=== PATIENT | male | born 1950 | race African-American/Black ===

== ENCOUNTER 2020-01-27 11:26 | Inpatient (IN) | payer MEDICARE, MEDICAID ==
[2020-01-27 12:25] VITALS: BP 165/75
[2020-01-27] MEDS ORDERED: Maalox 30 mL Cup PO PRN (21:17)
[2020-01-27] MEDS ORDERED: Magnesium Hydroxide (MOM) 30 mL UDC PO PRN (21:17)
[2020-01-27] MEDS ORDERED: GLUCAGON HCl 1 MG KIT IM PRN (21:17)
--- NOTE | 2020-01-27 22:50 | History & Physical ---
ADMIT DATE: 01/27/2020 HISTORY OF PRESENT ILLNESS: The patient is a 69-year-old male with long history of diabetes mellitus, hypertension, dementia, psychosis, admitted to [facility] under Dr. Weaver's service. The patient denies chest pain, shortness of breath, nausea, vomiting, fever or chills. PAST MEDICAL HISTORY: Significant for hypertension, diabetes mellitus, dementia, psychosis. PAST SURGICAL HISTORY: No recent surgery. ALLERGIES: None. MEDICATIONS: Follow admission reconciliation. SOCIAL HISTORY: He is a chronic smoker. No alcohol or drug. FAMILY HISTORY: Noncontributory. REVIEW OF SYSTEMS: RENAL SYSTEM: No history of chronic renal disorder. CARDIOVASCULAR SYSTEM: He has history of hypertension. ENDOCRINE SYSTEM: He has history of diabetes mellitus. GASTROINTESTINAL SYSTEM: No upper or lower GI bleed. NEUROLOGICAL SYSTEM: No seizure disorder. SKELETOMUSCULAR SYSTEM: No muscular dystrophy. HEMATOLOGICAL SYSTEM: No bleeding tendencies. RESPIRATORY SYSTEM: No asthma. GENITOURINARY SYSTEM: No dysuria or hematuria. PHYSICAL EXAMINATION: GENERAL: He is awake, alert, confused. VITAL SIGNS: Temperature 97.6, heart rate 89, blood pressure 161/73. HEENT: Normocephalic. Pupils reacting equal to light and accommodation. Sclerae clear. NECK: Supple. Negative for lymphadenopathy, JVD or bruit. CHEST: Entry of air bilaterally normal. No rhonchi or wheezing. HEART: S1, S2 normal. No gallop rhythm. ABDOMEN: Soft, bowel sounds positive. EXTREMITIES: No edema. BACK: Normal vertebra. GENITALIA AND RECTAL: Done by primary physician, no complaint. NEUROLOGICAL: He is awake, alert, confused. Cranial nerve #1: The patient is able to smell different odor. Cranial nerve #2: The patient is able to read printed page. Cranial nerve #3: The patient able to move eyeball upward and outward. Cranial nerve #4: The patient is able to move eyeball inward and downward. Cranial nerve #5: The patient able to clench teeth, has normal sensation to forehead. Cranial nerve #6: The patient is able to move eyeball lateral on both sides. Cranial nerve #7: The patient is able to move eyebrow upwards on both sides. Cranial nerve #8: The patient is able to hear finger rubs on both sides. Cranial nerve #9: The patient has a normal gag reflex. Cranial nerve #10: The patient is able to move soft palate upward on each side. Cranial nerve #11: The patient able to shrink shoulder on both sides. Cranial nerve #12: The patient able to stick tongue straight. Gait stable. Deep tendon reflexes stable. Sensation stable. SKIN: Intact. ASSESSMENT: 1. Diabetes mellitus. 2. Hypertension. 3. Degenerative joint disease. 4. Psychosis. PLAN: The patient in the hospital under Dr. Weaver's service. Medical problem addressed during hospitalization is psychosis. Medical problems addressed at discharge, diabetes mellitus, hypertension, degenerative joint disease. The patient is medically stable for activity. Thank you, Dr. Weaver for asking me to see your patient. The patient will follow up with primary physician upon discharge. The patient is a full code. JOB# [id number]
[2020-01-28] MEDS: INSULIN LISPRO SLIDING SCALE 100 UNITS/ML UNIT SUBQ SCH ×4 (06:34→20:38)
--- NOTE | 2020-01-28 13:46 | Psychiatric Evaluation ---
DATE OF SERVICE: 01/28/2020 IDENTIFYING DATA: The patient is a 69-year-old -[place] male, living with his family. Information obtained by directly interviewing the patient as well as reviewing the admission papers. JUSTIFICATION OF HOSPITALIZATION: The patient is admitted here on a 5150 as a danger to self and being gravely disabled. CHIEF COMPLAINT: "I don't know, I just came in here to see." HISTORY OF PRESENT ILLNESS: This is the first psychiatric hospitalization to [facility] for this patient who is not making any sense and is reported to have been running in and out of the traffic obstructing the vehicle the patient has to be placed on 5150 and admitted over here for stabilization. Prior to the hospitalization, the patient is reported to have been on several different medications for his hypertension, diabetes and the patient is stating that he is ALLERGIC TO ASPIRIN and IBUPROFEN. The patient is stating that he was getting several different medications including Valium for his muscle spasms. The patient has been having a pressured speech and the patient is not making much sense. Coping skills are noted to be very poor. The patient is going on a tangent. PAST PSYCHIATRIC HISTORY: Details are not known. MEDICAL HISTORY: Physical examination is requested by Dr. Stark. SUBSTANCE ABUSE HISTORY: The patient denies use of any drugs or alcohol. Urine drug screen is noted to be pending. SOCIAL HISTORY: The patient is , is reported to be living in [place]. MENTAL STATUS EXAMINATION: The patient is a 69-year-old, looking his stated age, superficially cooperative. The patient's speech is noted to be pressured. Insight and judgment are noted to be very much impaired. Impulse control is noted to be limited. The patient is very intrusive. The patient is very confused. The patient is stating that he has been in the hospital 4 days. The patient has no insight into his illness. Attention span is noted to be poor and concentration is also noted to be poor. Short-term memory is noted to be poor. Long-term memory seems to be fair. The patient is very intrusive and impulsive. DIAGNOSES: AXIS I: Unspecified psychosis, not due to substance or known physiological condition. 1B. Rule out bipolar disorder, mixed, with psychotic symptoms. AXIS II: None. AXIS III: Diabetes mellitus, hypertension, IMMEDIATE TREATMENT PLAN: The patient is going to be started on the low dose of the Zyprexa and Depakene. The patient is going to be closely monitored. ESTIMATED LENGTH OF STAY: 3-5 days. DISCHARGE CRITERIA: When he no longer a threat to self or others and be able to cope up with the stress. JOB# [id number]
--- NOTE | 2020-01-28 16:41 | General Progress Note ---
Subjective - Review of Systems Service Date: 01/28/20 Subjective: walking in hallways confused but cooperative no distress Objective - Results Recent Labs: Laboratory Last Values POC Glucose 107 MG/DL (70 - 105) H 01/28/20 11:58 - Physical Exam Vitals and I&O: Vital Signs Temp 98.2 F 01/28/20 14:19 Pulse 76 01/28/20 14:19 Resp 20 01/28/20 14:19 BP 163/72 01/28/20 14:19 Pulse Ox 96 01/28/20 14:19 Intake & Output 01/27/20 01/28/20 01/28/20 18:59 06:59 18:59 Intake Total 720 Output Total 1 Balance 719 Weight (lbs) 99.79 kg Intake: Oral 720 Output: Urine/Stool Mix 1 Other: # Voids 1 Stool Characteristics Soft Weight Source Standing scale Active Medications: Current Medications Acetaminophen (Tylenol) 650 mg PO Q4H PRN PRN Reason: Mild Pain/Headache/T above 101 Stop: 03/27/20 21:16 Last Admin: 01/28/20 04:51 Dose: 650 mg Al Hydrox/Mg Hydrox/Simethicone (Maalox) 30 ml PO Q6H PRN PRN Reason: Dyspepsia Stop: 03/27/20 21:16 Dextrose (Glutose 40%) 18.75 gm PO PRN PRN PRN Reason: Blood Glucose less than 70 Stop: 03/27/20 21:16 Glucagon (Glucagen) 1 mg IM PRN PRN PRN Reason: Blood Glucose less than 70 Stop: 03/27/20 21:16 Haloperidol (Haldol) 1 mg PO Q6HR PRN; Protocol PRN Reason: Anxiety Stop: 03/27/20 17:59 Last Admin: 01/28/20 08:27 Dose: 1 mg Insulin Human Lispro (Humalog Insulin Sliding Scale) 0 units SUBQ ACHS [facility]; Protocol Stop: 03/28/20 07:29 Last Admin: 01/28/20 11:35 Dose: Not Given Lisinopril (Zestril) 10 mg PO DAILY JODY Stop: 03/28/20 08:59 Last Admin: 01/28/20 08:26 Dose: 10 mg Lorazepam (Ativan) 0.5 mg PO Q4HR PRN; Protocol PRN Reason: Agitation Stop: 03/27/20 13:15 Last Admin: 01/28/20 08:27 Dose: 0.5 mg Magnesium Hydroxide (Milk Of Magnesia) 30 ml PO HS PRN PRN Reason: Constipation Stop: 03/27/20 21:16 Olanzapine (Zyprexa) 5 mg PO BID [facility]; Protocol Stop: 03/28/20 16:59 Valproate Sodium (Depakene) 250 mg PO BID [facility]; Protocol Stop: 03/28/20 16:59 Zolpidem Tartrate (Ambien) 5 mg PO HS PRN PRN Reason: Insomnia Stop: 03/27/20 13:25 Last Admin: 01/27/20 20:31 Dose: 5 mg General: No acute distress HEENT: Atraumatic Neck: Supple, JVD Cardiovascular: Regular rate, Normal S1, Normal S2 Lungs: Clear to auscultation Abdomen: Bowel sounds, Soft Assessment/Plan - Assessment Assessment: DM HTN chronic back pain psychosis - Plan Plan: continue current treatment
[2020-01-29] MEDS: INSULIN LISPRO SLIDING SCALE 100 UNITS/ML UNIT SUBQ SCH ×4 (06:45→20:54)
--- NOTE | 2020-01-29 11:44 | Progress Notes ---
DATE: 01/29/2020 SUBJECTIVE: Staff was spoken to. The patient is interviewed. Mood is noted to be irritable. Affect is constricted. Insight and judgment are noted to be still impaired. Impulse control is noted to be limited. The patient is pacing on the unit. He is getting easily agitated and trying to push the exit doors to get out of here. The patient has no insight into his illness. The patient is still going on a tangent. The patient states that he was on Valium. He needs to get Valium at bedtime. Coping skills at this time are noted to be extremely poor. No side effects to the medications are noted. The patient is currently on olanzapine and valproic acid and it is decided to give the Haldol on a p.r.n. basis if the patient is going to be acting out. ASSESSMENT: The patient is still impulsive and gravely disabled. PLAN: To continue the patient with the current medications and followup. JOB# [id number]
--- NOTE | 2020-01-29 20:53 | General Progress Note ---
Subjective - Review of Systems Service Date: 01/29/20 Subjective: walking in hallways confused but cooperative no distress Objective - Results Recent Labs: Laboratory Last Values POC Glucose 113 MG/DL (70 - 105) H 01/29/20 20:23 - Physical Exam Vitals and I&O: Vital Signs Temp 98.3 F 01/29/20 20:10 Pulse 78 01/29/20 20:10 Resp 20 01/29/20 20:10 BP 126/64 01/29/20 20:10 Pulse Ox 97 01/29/20 20:10 Intake & Output 01/29/20 01/29/20 01/30/20 06:59 18:59 06:59 Intake Total 720 1200 480 Balance 720 1200 480 Intake: Oral 720 1200 480 Other: # Voids 1 4 1 # Bowel Movements 1 Active Medications: Current Medications Acetaminophen (Tylenol) 650 mg PO Q4H PRN PRN Reason: Mild Pain 1-3 Stop: 03/27/20 21:16 Last Admin: 01/29/20 12:32 Dose: 650 mg Acetaminophen (Tylenol) 650 mg PO Q4H PRN PRN Reason: Headache Stop: 03/29/20 03:14 Acetaminophen (Tylenol) 650 mg PO Q4H PRN PRN Reason: Temp above 101 Stop: 03/29/20 03:15 Al Hydrox/Mg Hydrox/Simethicone (Maalox) 30 ml PO Q6H PRN PRN Reason: Dyspepsia Stop: 03/27/20 21:16 Amlodipine Besylate (Norvasc) 10 mg PO DAILY JODY Stop: 03/29/20 08:59 Last Admin: 01/29/20 08:37 Dose: 10 mg Dextrose (Glutose 40%) 18.75 gm PO PRN PRN PRN Reason: Blood Glucose less than 70 Stop: 03/27/20 21:16 Glucagon (Glucagen) 1 mg IM PRN PRN PRN Reason: Blood Glucose less than 70 Stop: 03/27/20 21:16 Haloperidol (Haldol) 1 mg PO Q6HR PRN; Protocol PRN Reason: Anxiety Stop: 03/27/20 17:59 Last Admin: 01/29/20 02:02 Dose: 1 mg Insulin Human Lispro (Humalog Insulin Sliding Scale) 0 units SUBQ ACHS [facility]; Protocol Stop: 03/28/20 07:29 Last Admin: 01/29/20 16:33 Dose: Not Given Lisinopril (Zestril) 10 mg PO DAILY JODY Stop: 03/28/20 08:59 Last Admin: 01/29/20 08:35 Dose: 10 mg Lorazepam (Ativan) 0.5 mg PO Q4HR PRN; Protocol PRN Reason: Agitation Stop: 03/27/20 13:15 Last Admin: 01/29/20 09:43 Dose: 0.5 mg Magnesium Hydroxide (Milk Of Magnesia) 30 ml PO HS PRN PRN Reason: Constipation Stop: 03/27/20 21:16 Olanzapine (Zyprexa) 5 mg PO BID [facility]; Protocol Stop: 03/28/20 16:59 Last Admin: 01/29/20 16:12 Dose: 5 mg Valproate Sodium (Depakene) 250 mg PO BID [facility]; Protocol Stop: 03/28/20 16:59 Last Admin: 01/29/20 16:12 Dose: 250 mg Zolpidem Tartrate (Ambien) 5 mg PO HS PRN PRN Reason: Insomnia Stop: 03/27/20 13:25 Last Admin: 01/28/20 20:02 Dose: 5 mg General: No acute distress HEENT: Atraumatic Neck: Supple, JVD Cardiovascular: Regular rate, Normal S1, Normal S2 Lungs: Clear to auscultation Abdomen: Bowel sounds, Soft Assessment/Plan - Assessment Assessment: DM HTN chronic back pain psychosis - Plan Plan: continue current treatment
[2020-01-30] MEDS: INSULIN LISPRO SLIDING SCALE 100 UNITS/ML UNIT SUBQ SCH ×4 (09:47→20:20)
--- NOTE | 2020-01-30 18:08 | Internal Medicine Prog Note ---
Internal Medicine Subjective - Subjective Service Date: 01/30/20 Patient seen and examined:: with staff (HE HAS BACK PAIN) Patient is:: awake, verbal, ambulating, talking, confused Per staff patient has:: no adverse event Internal Medicine Objective - Results Recent Labs: Laboratory Last Values POC Glucose 178 MG/DL (70 - 105) H 01/30/20 17:10 - Physical Exam Vitals and I&O: Vital Signs Temp 97.6 F 01/30/20 14:21 Pulse 78 01/30/20 14:21 Resp 18 01/30/20 14:21 BP 139/67 01/30/20 14:21 Pulse Ox 97 01/30/20 14:21 Intake & Output 01/29/20 01/30/20 01/30/20 18:59 06:59 18:59 Intake Total 1317 393 1818 Balance 0591 644 1437 Intake: Oral 7350 582 0802 Other 240 Other: # Voids 4 3 3 # Bowel Movements 1 0 0 Active Medications: Current Medications Acetaminophen (Tylenol) 650 mg PO Q4H PRN PRN Reason: Mild Pain 1-3 Stop: 03/27/20 21:16 Last Admin: 01/30/20 14:47 Dose: 650 mg Acetaminophen (Tylenol) 650 mg PO Q4H PRN PRN Reason: Headache Stop: 03/29/20 03:14 Acetaminophen (Tylenol) 650 mg PO Q4H PRN PRN Reason: Temp above 101 Stop: 03/29/20 03:15 Al Hydrox/Mg Hydrox/Simethicone (Maalox) 30 ml PO Q6H PRN PRN Reason: Dyspepsia Stop: 03/27/20 21:16 Amlodipine Besylate (Norvasc) 10 mg PO DAILY JODY Stop: 03/29/20 08:59 Last Admin: 01/30/20 09:56 Dose: 10 mg Dextrose (Glutose 40%) 18.75 gm PO PRN PRN PRN Reason: BS Below 70 if tolerate po Stop: 03/27/20 21:16 Glucagon (Glucagen) 1 mg IM PRN PRN PRN Reason: BS Below 70 if not tolerate po Stop: 03/27/20 21:16 Haloperidol (Haldol) 1 mg PO Q6HR PRN; Protocol PRN Reason: Anxiety Stop: 03/27/20 17:59 Last Admin: 01/29/20 23:16 Dose: 1 mg Insulin Human Lispro (Humalog Insulin Sliding Scale) 0 units SUBQ ACHS [facility]; Protocol Stop: 03/28/20 07:29 Last Admin: 01/30/20 17:21 Dose: 2 units Lisinopril (Zestril) 10 mg PO DAILY JODY Stop: 03/28/20 08:59 Last Admin: 01/30/20 09:56 Dose: 10 mg Lorazepam (Ativan) 0.5 mg PO Q4HR PRN; Protocol PRN Reason: Agitation Stop: 03/27/20 13:15 Last Admin: 01/30/20 14:47 Dose: 0.5 mg Magnesium Hydroxide (Milk Of Magnesia) 30 ml PO HS PRN PRN Reason: Constipation Stop: 03/27/20 21:16 Olanzapine (Zyprexa) 5 mg PO BID [facility]; Protocol Stop: 03/28/20 16:59 Last Admin: 01/30/20 16:51 Dose: 5 mg Valproate Sodium (Depakene) 250 mg PO BID [facility]; Protocol Stop: 03/28/20 16:59 Last Admin: 01/30/20 16:51 Dose: 250 mg Zolpidem Tartrate (Ambien) 5 mg PO HS PRN PRN Reason: Insomnia Stop: 03/27/20 13:25 Last Admin: 01/29/20 20:55 Dose: 5 mg General: demented HEENT: NC/AT, PERRLA, EOMI, anicteric sclerae, throat clear Neck: Supple, No JVD, No thyromegaly, +2 carotid pulse wo bruit, No LAD, + JVD Lungs: CTAB Cardiovascular: RRR, Normal S1, Normal S2, without murmur Abdomen: soft, non-tender, non-distended Extremities: clear Neurological: no change, gait stable Internal Medicine Assmt/Plan - Assessment Assessment: 1.BACK PAIN. 2./DM. 3.HTN. 4.PSYCHOSIS - Plan Plan: TRAMADOL 50 MG PO EVERY 8 H PRN FOR BACK PAIN
--- NOTE | 2020-01-30 22:39 | Progress Notes ---
DATE: 01/30/2020 PSYCHIATRIC PROGRESS NOTE SUBJECTIVE: Staff was spoken to. The patient is interviewed. Mood is noted to be irritable. Affect is constricted. The patient's insight and judgment are noted to be still impaired. The patient is confused and has been getting to the exit doors. The patient has no insight into his illness. Coping skills are noted to be extremely poor at this time. Now, the patient is currently on Zyprexa and has been able to tolerate the medications. The patient's has been spoken to and she is more worried that the patient is not getting his Valium that he used to get outside. The patient at this time is still very confused and not making any sense and hence has been advised that the Valium might not be the greatest medication for this 69-year-old, who is very confused and not making any sense. The patient is maintained on 5 mg twice a day of the olanzapine and valproic acid 250 mg has been given for his mood swings. The patient is being closely monitored. The patient's has been calling and stating that they need to pay the rent and then the patient has all the bank accounts and ____ if the patient is not going to be discharged, they are going to be losing a place to stay. wastewater project manager has been informed about the situation ____, she mentioned that she is going to give a call to the and then try to figure it out what can be done. The patient's has been fully made aware of the patient's confusion, but the patient's is stating that she can take care of him at home. ASSESSMENT: The patient is still confused and gravely disabled. PLAN: To continue the patient with the current medications. I encouraged the patient to verbalize the concerns rather than to act out. JOB# [id number]
[2020-01-31] MEDS: INSULIN LISPRO SLIDING SCALE 100 UNITS/ML UNIT SUBQ SCH ×3 (06:32→17:04)
--- NOTE | 2020-01-31 09:29 | Progress Notes ---
DATE: 01/31/2020 SUBJECTIVE: Staff was spoken to. The patient is interviewed. Mood is noted to be anxious. The patient's insight and judgment are noted to be improving. Impulse control seems to be fair. No side effects to the medications are noted. The patient is very much alert and oriented today stating that he needs to go to pay his bills. No confusion is noted. Insight and judgment are noted to be improving. Impulse control seems to be fair today. The patient's has already called me stating that the rent is due by tomorrow and she wants the patient back at home. services manager has been informed of the same. ASSESSMENT: The patient is stabilizing. PLAN: To continue the patient with the current medications and work with the staff in providing transportation to the patient and he is discharged. JOB# [id number]
--- NOTE | 2020-01-31 19:17 | Internal Medicine Prog Note ---
Internal Medicine Subjective - Subjective Service Date: 01/31/20 Patient seen and examined:: without staff (HE FEELS WELL) Patient is:: awake, verbal, ambulating, talking, confused Per staff patient has:: no adverse event Internal Medicine Objective - Results Recent Labs: Laboratory Last Values POC Glucose 134 MG/DL (70 - 105) H 01/31/20 13:27 - Physical Exam Vitals and I&O: Vital Signs Temp 97.6 F 01/31/20 15:20 Pulse 72 01/31/20 15:20 Resp 18 01/31/20 15:20 BP 128/76 01/31/20 15:20 Pulse Ox 96 01/31/20 15:20 Intake & Output 01/31/20 01/31/20 02/01/20 06:59 18:59 06:59 Intake Total 1300 Balance 1300 Intake: Oral 1300 Other: # Voids 3 2 # Bowel Movements 0 0 Active Medications: Current Medications Acetaminophen (Tylenol) 650 mg PO Q4H PRN PRN Reason: Mild Pain 1-3 Stop: 03/27/20 21:16 Last Admin: 01/30/20 23:49 Dose: 650 mg Acetaminophen (Tylenol) 650 mg PO Q4H PRN PRN Reason: Headache Stop: 03/29/20 03:14 Acetaminophen (Tylenol) 650 mg PO Q4H PRN PRN Reason: Temp above 101 Stop: 03/29/20 03:15 Al Hydrox/Mg Hydrox/Simethicone (Maalox) 30 ml PO Q6H PRN PRN Reason: Dyspepsia Stop: 03/27/20 21:16 Amlodipine Besylate (Norvasc) 10 mg PO DAILY JODY Stop: 03/29/20 08:59 Last Admin: 01/31/20 09:18 Dose: 10 mg Dextrose (Glutose 40%) 18.75 gm PO PRN PRN PRN Reason: BS Below 70 if tolerate po Stop: 03/27/20 21:16 Glucagon (Glucagen) 1 mg IM PRN PRN PRN Reason: BS Below 70 if not tolerate po Stop: 03/27/20 21:16 Haloperidol (Haldol) 1 mg PO Q6HR PRN; Protocol PRN Reason: Anxiety Stop: 03/27/20 17:59 Last Admin: 01/29/20 23:16 Dose: 1 mg Insulin Human Lispro (Humalog Insulin Sliding Scale) 0 units SUBQ ACHS [facility]; Protocol Stop: 03/28/20 07:29 Last Admin: 01/31/20 17:04 Dose: Not Given Lisinopril (Zestril) 10 mg PO DAILY JODY Stop: 03/28/20 08:59 Last Admin: 01/31/20 09:16 Dose: 10 mg Lorazepam (Ativan) 0.5 mg PO Q4HR PRN; Protocol PRN Reason: Agitation Stop: 03/27/20 13:15 Last Admin: 01/30/20 23:50 Dose: 0.5 mg Magnesium Hydroxide (Milk Of Magnesia) 30 ml PO HS PRN PRN Reason: Constipation Stop: 03/27/20 21:16 Olanzapine (Zyprexa) 5 mg PO HS [facility]; Protocol Stop: 03/31/20 20:59 Tramadol HCl (Ultram) 50 mg PO Q8HR PRN PRN Reason: Pain (Moderate 4-6) Stop: 03/30/20 18:03 Last Admin: 01/31/20 10:59 Dose: 50 mg Valproate Sodium (Depakene) 250 mg PO BID [facility]; Protocol Stop: 03/28/20 16:59 Last Admin: 01/31/20 17:09 Dose: 250 mg Zolpidem Tartrate (Ambien) 5 mg PO HS PRN PRN Reason: Insomnia Stop: 03/27/20 13:25 Last Admin: 01/30/20 20:39 Dose: 5 mg General: demented HEENT: NC/AT, PERRLA, EOMI, anicteric sclerae, throat clear Neck: Supple, No JVD, No thyromegaly, +2 carotid pulse wo bruit, No LAD, + JVD Lungs: CTAB Cardiovascular: RRR, Normal S1, Normal S2, without murmur Abdomen: soft, non-tender, non-distended Extremities: clear Neurological: no change, gait stable Internal Medicine Assmt/Plan - Assessment Assessment: 1.BACK PAIN. 2./DM. 3.HTN. 4.PSYCHOSIS - Plan Plan: TRAMADOL 50 MG PO EVERY 8 H PRN FOR BACK PAIN
== END 2020-01-31 16:15 | disposition home or self-care (01) | DRG 885 ==
LOC: GERO 11:26
DX: F29 Unspecified psychosis not due to a substance or known physiological condition (principal); F31.9 Bipolar disorder, unspecified; I10 Essential (primary) hypertension; E11.9 Type 2 diabetes mellitus without complications; G89.29 Other chronic pain; M54.9 Dorsalgia, unspecified; Z88.8 Allergy status to other drugs, medicaments and biological substances; Z88.6 Allergy status to analgesic agent; Z91.040 Latex allergy status
CPT/HCPCS: 82948-90; 83036-90; A4216; J1200; J2060; J7051; Z7610